=== PATIENT | female | born 2005 | race Caucasian/White ===

== ENCOUNTER 2024-08-01 22:18 | Emergency (ER) | payer OTHER ==
[~2024-08-01] VITALS: Ht 167.6 cm; Wt 75.9 kg
[2024-08-01 22:30] VITALS: BP 114/65
[2024-08-01] MEDS ORDERED: dexAMETHasone 4 MG/ML VIAL PO ONE (22:45)
[2024-08-01] MEDS ORDERED: IBU-200200 M1 PO (22:48)
[2024-08-01] MEDS ORDERED: AMOXICILLIN 50500 MG PO (23:12)
[2024-08-01] MEDS ORDERED: Amoxicillin 250 MG CAP PO ONE (23:15)
== END 2024-08-01 23:28 | disposition home or self-care (01) ==
LOC: ED 22:18
DX: J02.0 Streptococcal pharyngitis (principal)
CPT/HCPCS: J1100

== ENCOUNTER 2024-08-03 20:52 | Emergency (ER) | payer OTHER ==
[~2024-08-03] VITALS: Ht 167.6 cm; Wt 77.3 kg
[~2024-08-03 20:52] MED LIST: AMOXICILLIN 50500 MG PO; IBU-200200 M1 PO
[2024-08-03 22:17] VITALS: BP 116/72
== END 2024-08-03 22:18 | disposition home or self-care (01) ==
LOC: ED 20:52
DX: J02.0 Streptococcal pharyngitis (principal)